=== PATIENT | male | born 1930 | race Caucasian/White ===

== ENCOUNTER 2018-03-28 09:45 | Emergency (ER) | payer OTHER ==
[~2018-03-28] VITALS: Ht 177.8 cm; Wt 103.9 kg
[~2018-03-28 09:45] MED LIST: ADULT LOW DOSE81 MG PO; AMLODIPINE BESYL5 MG PO; ARIXTRA; ARIXTRA SUBQ; ASPIRIN325 PO; BACTRIM DS TAB1 EACH PO; CENTRUM SILVER1 EAC4 PO; COLACE 100 MG100 MG PO; COLACE100 MG PO; COMBIGAN EYE DR10 ML OPHTHALMIC; FISH OIL 1,0001 EAC5 PO; LIPITOR10 MG PO; MESTINON60 MG PO; METFORMIN HCL500 MG PO; OS-CAL 500+D C1 EACH PO; OXYCODONE HCL5 M1 PO; OXYIR 5 MG CAPSU5 M1 PO; PERCOCET 5-3251 EACH PO; PREDNISONE 10 M10 M1 PO; PREDNISONE 5 MG5 M1 PO; PRESERVISION A1 EAC1; PRESERVISION T1 EACH PO; SIMVASTATIN40 MG PO; TRIPLE FLEX PO; VALIUM5 MG PO; VITAMIN E400 UNIT PO; VITAMINC500 PO; XALATAN2.5 ML OPHTHALMIC; ZOCOR40 MG; [UNRECOGNIZED DRUG - CODE]
[2018-03-28] MEDS ORDERED: PRESERVISION T1 EACH PO (10:22)
[2018-03-28] MEDS ORDERED: SIMBRINZA 1%-0.28 ML OTIC (10:23)
[2018-03-28] MEDS ORDERED: OSTEO BI-FLEX1 EAC1 PO (10:23)
[2018-03-28 11:25] VITALS: BP 134/71
== END 2018-03-28 11:25 | disposition home or self-care (01) ==
LOC: M.ERS 09:45
DX: I80.02 Phlebitis and thrombophlebitis of superficial vessels of left lower extremity (principal); E11.9 Type 2 diabetes mellitus without complications; I10 Essential (primary) hypertension; Z88.1 Allergy status to other antibiotic agents; Z88.0 Allergy status to penicillin

== ENCOUNTER 2018-05-01 14:38 | Emergency (ER) | payer OTHER ==
[~2018-05-01] VITALS: Ht 180.3 cm; Wt 102.1 kg
[~2018-05-01 14:38] MED LIST changes: +OSTEO BI-FLEX1 EAC1 PO; +SIMBRINZA 1%-0.28 ML OTIC
[2018-05-01 15:21] VITALS: BP 137/72
== END 2018-05-01 15:22 | disposition home or self-care (01) ==
LOC: M.ERS 14:38
DX: Z71.1 Person with feared health complaint in whom no diagnosis is made (principal); I10 Essential (primary) hypertension; E11.9 Type 2 diabetes mellitus without complications; Z88.0 Allergy status to penicillin; Z88.1 Allergy status to other antibiotic agents

== ENCOUNTER 2018-11-10 14:09 | Emergency (ER) | payer OTHER ==
[~2018-11-10] VITALS: Ht 180.3 cm; Wt 100.7 kg
[2018-11-10] MEDS ORDERED: AMLODIPINE BESY10 MG PO (14:52)
[2018-11-10] MEDS ORDERED: NORCO 5-325 TA1 EAC1 PO (16:18)
[2018-11-10 16:34] VITALS: BP 164/68
== END 2018-11-10 16:35 | disposition home or self-care (01) ==
LOC: M.ERS 14:09
DX: B35.3 Tinea pedis (principal); M79.672 Pain in left foot; I10 Essential (primary) hypertension; E11.9 Type 2 diabetes mellitus without complications; Z88.1 Allergy status to other antibiotic agents; Z88.0 Allergy status to penicillin